=== PATIENT | male | born 1975 | race Caucasian/White ===

== ENCOUNTER 2017-01-22 19:09 | Emergency (ER) | payer MEDICARE, OTHER ==
[~2017-01-22] VITALS: Ht 182.9 cm; Wt 100.0 kg
[2017-01-22 20:26] VITALS: BP 137/91
[2017-01-22] MEDS ORDERED: IBUPROFEN 800 MG TABLET PO ONE (20:30)
== END 2017-01-22 20:44 | disposition home or self-care (01) ==
LOC: EMS 19:10
DX: H60.91 Unspecified otitis externa, right ear (principal); H66.91 Otitis media, unspecified, right ear; F17.210 Nicotine dependence, cigarettes, uncomplicated; F12.10 Cannabis abuse, uncomplicated
CPT/HCPCS: 99283